=== PATIENT | female | born 1985 | race Asian ===

== ENCOUNTER 2019-10-18 14:15 | Outpatient (CLI) | payer MEDICAID ==
--- NOTE | 2019-10-18 16:19 | ULT ---
OB ULTRASOUND: 10/18/19 HISTORY: anatomy. FINDINGS: A single live intrauterine gestation is seen with measurements corresponding to an estimated gestatio nal age of 23 weeks, 4 days and RIVERA at 02/10/2020. The estimated weight measures 595 grams or 5 o z (57th percentile by Hadlock criteria). measurements are as follows: BPD 5.74 cm 23 weeks, 4 days HC 21.59 cm 23 weeks, 5 days AC 18.70 cm 23 weeks, 4 days FL 4.11 cm 23 weeks, 3 days heart rate measures 149 beats per minute. ANGEL measures 13.5 cm. Placenta is anteriorly located without evidence of placenta previa. Cervical length measures 4.1 cm. A three vessel cord, cord insertion, kidneys, bladder, stomach, four chamber heart, lateral reggie tricles, cerebellum, spine, lips/nose, upper and lower extremities are visualized. No definite anomalies are seen. IMPRESSION: Single live IUP of 23 weeks, 4 days estimated gestational age and RIVERA at 02/10/20. POS: SHAMAR
== END 2019-10-18 14:16 | disposition home or self-care (01) ==
LOC: BICULT 14:15
PROVIDERS: ATTEND Family Medicine
DX: Z34.82 Encounter for supervision of other normal pregnancy, second trimester (principal); Z3A.23 23 weeks gestation of pregnancy
CPT/HCPCS: 76805